=== PATIENT | female | born 1965 | race Caucasian/White ===

== ENCOUNTER 2017-09-24 09:07 | Emergency (ER) | payer OTHER, SELFPAY ==
[2017-09-24 09:27] VITALS: BP 165/88; PULSE 76; RESP 15; TEMP 37.1; O2SAT 99
--- NOTE | 2017-09-24 09:30 | ED.GENADULT ---
HPI - General Adult General Chief complaint: Hypertension Stated complaint: HIGH BLOOD PRESSURE Time Seen by Provider: 09/24/17 09:10 Source: patient Mode of arrival: ambulatory Limitations: no limitations History of Present Illness HPI narrative: 52-year-old female with history of hypertension and depression and anxiety presents to the emergency department with a chief complaint of elevated blood pressure comma chest pressure and feeling foggy. She states the symptoms started yesterday and she went to the urgent care. Upon arrival they found her blood pressure to be 200/100 and she was transported by ambulance to [facility] where she had a thorough evaluation in the emergency department and in the and was discharged after administration of Ativan. Today she started having similar symptoms again. Blood pressure at the clinic was 170s, patient called her primary care provider and was told to come here for evaluation. The patient used to be on lisinopril 10 mg hydrochlorothiazide 12.5 but that was discontinued I urine half ago as the patient no longer needed it. Patient denies blurry vision or focal neurologic findings such as numbness, tingling or weakness Onset (ago): day(s) Location: chest Quality: aching Pain Consistency: intermittent Relieving factors: none Associated symptoms: shortness of breath Related Data Home Medications Medication Instructions Recorded Confirmed naratriptan [Amerge] 1 tab PO PRN PRN MDD 5 mg 09/24/17 09/24/17 paroxetine HCl 30 mg PO DAILY 09/24/17 09/24/17 Previous Rx's Medication Instructions Recorded lisinopril-hydrochlorothiazide 1 tab PO DAILY #30 tab 09/24/17 Review of Systems Review of Systems All systems reviewed & are unremarkable except as noted in HPI and below Constitutional Reports body ache(s), Denies chills, Denies fever(s), Reports headache(s), Denies lethargy and Reports weakness Eyes Denies change in vision, Denies eye discharge, Denies irritation and Denies loss of vision ENT Ears, Nose, Mouth, and Throat: Denies change in voice, Reports headache(s), Denies neck pain and Denies sore throat Cardiovascular Reports chest pain, Denies irregular heart rhythm, Denies lightheadedness, Denies palpitations, Reports dyspnea, Denies dyspnea on exertion and Denies orthopnea Respiratory Denies cough, Reports dyspnea, Denies dyspnea on exertion and Denies wheezing Gastrointestinal Gastrointestinal: Denies abdominal pain, Denies change in bowel habits, Denies diarrhea, Denies nausea and Denies vomiting Genitourinary Denies hematuria, Denies flank pain, Denies urinary incontinence and Denies urinary urgency Musculoskeletal Denies neck pain Integumentary/Breasts Denies pruritus, Denies erythema, Denies rash and Denies wounds Neurologic Reports confusion, Reports headache(s), Denies loss of vision and Reports weakness Psychiatric Denies anxiety, Reports confusion, Denies depression, Denies homicidal ideation and Denies suicidal ideation Endocrine Denies palpitations Hematologic/Lymphatic Denies easy bruising Allergic/Immunologic Denies wheezing [facility] Medical History Anxiety (Acute) HTN (hypertension) (Acute) Exam Initial Vital Signs Initial Vital Signs: Vital Signs Temperature 98.8 F 09/24/17 09:27 Pulse Rate 76 09/24/17 09:27 Respiratory Rate 15 09/24/17 09:27 Blood Pressure 165/88 H 09/24/17 09:27 Pulse Oximetry 99 09/24/17 09:27 Const General: cooperative and well developed Nutritional Appearance: well nourished Orientation: alert, awake, oriented x3 and not confused [facility] Head: normocephalic and atraumatic Ears: external ears normal and TM's normal bilaterally Nose: external nose normal and No nasal discharge Face and sinus: sinuses nontender, face symmetric, no sinus tenderness and No dry mucous membranes Mouth: oral mucosae normal and moist mucous membranes Teeth and gingiva: dentition normal Throat: tonsils normal and uvula midline Eyes General: appearance normal, both eyes and all related structures Eyelids: eyelids normal Conjunctivae: conjunctivae normal Sclera: sclerae normal Pupils: PERRL EOM: EOM intact bilaterally Neck Neck: normal visual inspection, trachea midline, No lymphadenopathy, No midline deformity and No JVD Lymphatic: No lymphedema Chest Chest: normal inspection of the chest Resp Effort & Inspection: normal respiratory effort, able to speak in complete sentences, no respiratory distress and no use of accessory muscles Auscultation: clear to auscultation bilaterally, no rales, no rhonchi and no wheezes Cardio Rate: regular rate Rhythm: regular rhythm Heart Sounds: no click, no gallops, no murmurs and no rubs Pulses: normal peripheral pulses GI Inspection: non-distended Palpation: soft, no hepatosplenomegaly, No guarding, No pulsatile mass and No tender Auscultation: normal bowel sounds Back/Spine/Pelvis Back: No CVA tenderness Cervical Spine: cervical ROM normal and No pain with cervical ROM Thoracic/Lumbar Spine: thoracic and lumbar spine normal to inspection Skin General: no rashes or lesions noted, No jaundice and No petechiae Neuro General: alert, oriented x3, gait normal and no focal motor deficits Speech: speech normal Extrem General: full ROM, no clubbing, cyanosis or edema, no pedal edema and no calf tenderness Psych Appearance: well kempt Mental Status: mental status grossly normal Attitude: cooperative Thought Content: normal and suicidality Judgment: judgment good Course Orders Ordered: Discontinued Medications Ibuprofen (Advil) 400 mg PO NOW ONE Stop: 09/24/17 10:50 Last Admin: 09/24/17 10:51 Dose: 400 mg Vital Signs - 8 hr 09/24/17 09:27 Temperature 98.8 F Pulse Rate 76 Respiratory Rate 15 Blood Pressure 165/88 H Pulse Oximetry 99 Medical Decision Making Lab Data Result diagrams: 09/24/17 10:20 09/24/17 10:20 Lab Results 09/24/17 09/24/17 Range/Units 10:20 10:20 WBC 11.1 H (4.5-11.0) X10^3/uL RBC 4.50 (4.0-5.2) X10^6/uL Hgb 13.9 (12.0-16.0) g/dL Hct 41.1 (36-46) % MCV 91.5 (80-100) fL MCH 30.8 (26-34) PG MCHC 33.7 (30-36) % RDW 12.9 (11.6-14.8) % Plt Count 342 (150-400) X10^3/uL Neut % (Auto) 77.4 H (50-75) % Lymph % (Auto) 16.9 L (25-40) % [place] % (Auto) 4.5 (3-14) % Eos % (Auto) 0.5 L (2-4) % Baso % (Auto) 0.7 (0-2) % Neut # (Auto) 8600 H (8639-3510) /uL Sodium 142 (137-145) mmol/L Potassium 4.1 (3.4-5.1) mmol/L Chloride 102 (98-107) mmol/L Carbon Dioxide 29 (22-32) mmol/L BUN 19 H (7-17) mg/dL Creatinine 0.70 (0.52-1.04) mg/dL Estimated GFR > 60.0 (>60) mL/min BUN/Creatinine Ratio 27.1 H (6-22) Glucose 101 H (70-100) mg/dL Calcium 10.0 (8.4-10.2) mg/dL Troponin I < 0.012 (0.01-0.034) ng/mL ECG Data Attestation: I personally reviewed and interpreted this ECG as follows: Prior ECG tracings: not available for review Interpretation: Normal sinus rhythm without signs of ectopy or segmental elevations suggestive of ischemia Discharge Plan Departure Patient Disposition: Home, Self-Care Clinical Impression: Hypertension Discharge Date/Time: 09/24/17 11:27 Interventions: ED Discharge Assessment Last Done: 09/24/17 11:27 Instructions: DI for High Blood Pressure Activity Restrictions/Additional Instructions: *You have been diagnosed with [ hypertension ] *What to do: *Take medications as directed *Follow up with your primary care provider in 2-3 days, call for an appointment. Let them know you were seen in the Emergency Department and that we ask that you be seen in follow up *Return to ER if you should have any new, worsening or concerning symptoms, such as [ongoing chest pain, shortness of breath, blurred vision, stroke-like symptoms like numbness, tingling or weakness of year arm or leg ] Prescriptions: New lisinopril-hydrochlorothiazide 10-12.5 mg tablet 1 tab PO DAILY Qty: 30 RF: 0 No Action paroxetine HCl 30 mg Tablet 30 mg PO DAILY RF: 0 naratriptan [Amerge] 2.5 mg Tablet 1 tab PO PRN MDD 5 mg PRN (Reason: Migraine Headache) RF: 0 Referrals: Donna Rodríguez ARNP [Primary Care Provider] - Stand Alone Forms: Work/School Restrictions
[2017-09-24 09:45] VITALS: BP 152/85; PULSE 75; RESP 18; O2SAT 100
--- NOTE | 2017-09-24 09:59 | DI.RAD.S_ITS ---
PROCEDURE: XR CHEST 2V INDICATIONS: HTN, chest pressure. TECHNIQUE: 2 views of the chest were acquired. COMPARISON: None. FINDINGS: Surgical changes and devices: Radiopaque densities projecting over the right upper quadrant the abdomen likely represent surgical clips. Lungs and pleura: No pleural effusions or pneumothorax. Lungs are clear. Mediastinum: Mediastinal contours are normal. Heart size is normal. Bones and chest wall: No suspicious bony abnormalities. Soft tissues appear unremarkable. IMPRESSION: No acute cardiopulmonary disease. Dictated by: Eliazar Kelley M.D. on 09/24/2017 at 10:24 Approved by: Eliazar Kelley M.D. on 09/24/2017 at 10:30
--- NOTE | 2017-09-24 10:09 | ED_ITS ---
HPI - General Adult General Chief complaint: Hypertension Stated complaint: HIGH BLOOD PRESSURE Time Seen by Provider: 09/24/17 09:10 Source: patient Mode of arrival: ambulatory Limitations: no limitations History of Present Illness HPI narrative: 52-year-old female with history of hypertension and depression and anxiety presents to the emergency department with a chief complaint of elevated blood pressure comma chest pressure and feeling foggy. She states the symptoms started yesterday and she went to the urgent care. Upon arrival they found her blood pressure to be 200/100 and she was transported by ambulance to [facility] where she had a thorough evaluation in the emergency department and in the and was discharged after administration of Ativan. Today she started having similar symptoms again. Blood pressure at the clinic was 170s, patient called her primary care provider and was told to come here for evaluation. The patient used to be on lisinopril 10 mg hydrochlorothiazide 12.5 but that was discontinued I urine half ago as the patient no longer needed it. Patient denies blurry vision or focal neurologic findings such as numbness , tingling or weakness Onset (ago): day(s) Location: chest Quality: aching Pain Consistency: intermittent Relieving factors: none Associated symptoms: shortness of breath Related Data Home Medications Medication Instructions Recorded Confirmed naratriptan [Amerge] 1 tab PO PRN PRN MDD 5 mg 09/24/17 09/24/17 paroxetine HCl 30 mg PO DAILY 09/24/17 09/24/17 Previous Rx's Medication Instructions Recorded lisinopril-hydrochlorothiazide 1 tab PO DAILY #30 tab 09/24/17 Review of Systems Review of Systems All systems reviewed & are unremarkable except as noted in HPI and below Constitutional Reports body ache(s), Denies chills, Denies fever(s), Reports headache(s), Denies lethargy and Reports weakness Eyes Denies change in vision, Denies eye discharge, Denies irritation and Denies loss of vision ENT Ears, Nose, Mouth, and Throat: Denies change in voice, Reports headache(s), Denies neck pain and Denies sore throat Cardiovascular Reports chest pain, Denies irregular heart rhythm, Denies lightheadedness, Denies palpitations, Reports dyspnea, Denies dyspnea on exertion and Denies orthopnea Respiratory Denies cough, Reports dyspnea, Denies dyspnea on exertion and Denies wheezing Gastrointestinal Gastrointestinal: Denies abdominal pain, Denies change in bowel habits, Denies diarrhea, Denies nausea and Denies vomiting Genitourinary Denies hematuria, Denies flank pain, Denies urinary incontinence and Denies urinary urgency Musculoskeletal Denies neck pain Integumentary/Breasts Denies pruritus, Denies erythema, Denies rash and Denies wounds Neurologic Reports confusion, Reports headache(s), Denies loss of vision and Reports weakness Psychiatric Denies anxiety, Reports confusion, Denies depression, Denies homicidal ideation and Denies suicidal ideation Endocrine Denies palpitations Hematologic/Lymphatic Denies easy bruising Allergic/Immunologic Denies wheezing [facility] Medical History Anxiety (Acute) HTN (hypertension) (Acute) Exam Initial Vital Signs Initial Vital Signs: Vital Signs Temperature 98.8 F 09/24/17 09:27 Pulse Rate 76 09/24/17 09:27 Respiratory Rate 15 09/24/17 09:27 Blood Pressure 165/88 H 09/24/17 09:27 Pulse Oximetry 99 09/24/17 09:27 Const General: cooperative and well developed Nutritional Appearance: well nourished Orientation: alert, awake, oriented x3 and not confused [facility] Head: normocephalic and atraumatic Ears: external ears normal and TM's normal bilaterally Nose: external nose normal and No nasal discharge Face and sinus: sinuses nontender, face symmetric, no sinus tenderness and No dry mucous membranes Mouth: oral mucosae normal and moist mucous membranes Teeth and gingiva: dentition normal Throat: tonsils normal and uvula midline Eyes General: appearance normal, both eyes and all related structures Eyelids: eyelids normal Conjunctivae: conjunctivae normal Sclera: sclerae normal Pupils: PERRL EOM: EOM intact bilaterally Neck Neck: normal visual inspection, trachea midline, No lymphadenopathy, No midline deformity and No JVD Lymphatic: No lymphedema Chest Chest: normal inspection of the chest Resp Effort & Inspection: normal respiratory effort, able to speak in complete sentences, no respiratory distress and no use of accessory muscles Auscultation: clear to auscultation bilaterally, no rales, no rhonchi and no wheezes Cardio Rate: regular rate Rhythm: regular rhythm Heart Sounds: no click, no gallops, no murmurs and no rubs Pulses: normal peripheral pulses GI Inspection: non-distended Palpation: soft, no hepatosplenomegaly, No guarding, No pulsatile mass and No tender Auscultation: normal bowel sounds Back/Spine/Pelvis Back: No CVA tenderness Cervical Spine: cervical ROM normal and No pain with cervical ROM Thoracic/Lumbar Spine: thoracic and lumbar spine normal to inspection Skin General: no rashes or lesions noted, No jaundice and No petechiae Neuro General: alert, oriented x3, gait normal and no focal motor deficits Speech: speech normal Extrem General: full ROM, no clubbing, cyanosis or edema, no pedal edema and no calf tenderness Psych Appearance: well kempt Mental Status: mental status grossly normal Attitude: cooperative Thought Content: normal and suicidality Judgment: judgment good Course Orders Ordered: Discontinued Medications Ibuprofen (Advil) 400 mg PO NOW ONE Stop: 09/24/17 10:50 Last Admin: 09/24/17 10:51 Dose: 400 mg Vital Signs - 8 hr 09/24/17 09:27 Temperature 98.8 F Pulse Rate 76 Respiratory Rate 15 Blood Pressure 165/88 H Pulse Oximetry 99 Medical Decision Making Lab Data Result diagrams: 09/24/17 10:20 09/24/17 10:20 Lab Results 09/24/17 09/24/17 Range/Units 10:20 10:20 WBC 11.1 H (4.5-11.0) X10^3/uL RBC 4.50 (4.0-5.2) X10^6/uL Hgb 13.9 (12.0-16.0) g/dL Hct 41.1 (36-46) % MCV 91.5 (80-100) fL MCH 30.8 (26-34) PG MCHC 33.7 (30-36) % RDW 12.9 (11.6-14.8) % Plt Count 342 (150-400) X10^3/uL Neut % (Auto) 77.4 H (50-75) % Lymph % (Auto) 16.9 L (25-40) % [place] % (Auto) 4.5 (3-14) % Eos % (Auto) 0.5 L (2-4) % Baso % (Auto) 0.7 (0-2) % Neut # (Auto) 8600 H (6528-6545) /uL Sodium 142 (137-145) mmol/L Potassium 4.1 (3.4-5.1) mmol/L Chloride 102 (98-107) mmol/L Carbon Dioxide 29 (22-32) mmol/L BUN 19 H (7-17) mg/dL Creatinine 0.70 (0.52-1.04) mg/dL Estimated GFR > 60.0 (>60) mL/min BUN/Creatinine Ratio 27.1 H (6-22) Glucose 101 H (70-100) mg/dL Calcium 10.0 (8.4-10.2) mg/dL Troponin I < 0.012 (0.01-0.034) ng/mL ECG Data Attestation: I personally reviewed and interpreted this ECG as follows: Prior ECG tracings: not available for review Interpretation: Normal sinus rhythm without signs of ectopy or segmental elevations suggestive of ischemia Discharge Plan Departure Patient Disposition: Home, Self-Care Clinical Impression: Hypertension Discharge Date/Time: 09/24/17 11:27 Interventions: ED Discharge Assessment Last Done: 09/24/17 11:27 Instructions: DI for High Blood Pressure Activity Restrictions/Additional Instructions: *You have been diagnosed with [ hypertension ] *What to do: *Take medications as directed *Follow up with your primary care provider in 2-3 days, call for an appointment. Let them know you were seen in the Emergency Department and that we ask that you be seen in follow up *Return to ER if you should have any new, worsening or concerning symptoms , such as [ongoing chest pain, shortness of breath, blurred vision, stroke-like symptoms like numbness, tingling or weakness of year arm or leg ] Prescriptions: New lisinopril-hydrochlorothiazide 10-12.5 mg tablet 1 tab PO DAILY Qty: 30 RF: 0 No Action paroxetine HCl 30 mg Tablet 30 mg PO DAILY RF: 0 naratriptan [Amerge] 2.5 mg Tablet 1 tab PO PRN MDD 5 mg PRN (Reason: Migraine Headache) RF: 0 Referrals: Donna Rodríguez ARNP [Primary Care Provider] - Stand Alone Forms: Work/School Restrictions
--- NOTE | 2017-09-24 10:12 | PC.NURSE ---
No c/o of chest pain;
[2017-09-24 10:29] LABS: Add Manual Diff / Slide Review NO; Basophils Percent Auto 0.7 % (0-2); Eosinophils Percent Auto 0.5 % (2-4); Hematocrit 41.1 % (36-46); Hemoglobin 13.9 g/dL (12.0-16.0); Lymphocytes Percent Auto 16.9 % (25-40); Mean Corpuscular HGB Conc 33.7 % (30-36); Mean Corpuscular Hemoglobin 30.8 PG (26-34); Mean Corpuscular Volume 91.5 fL (80-100); Monocytes Percent Auto 4.5 % (3-14); Neutrophils Absolute Auto 8600 /uL (3000-5900); Neutrophils Percent Auto 77.4 % (50-75); Platelet Count 342 X10^3/uL (150-400); Red Cell Distribution Width 12.9 % (11.6-14.8); White Blood Cell Count 11.1 X10^3/uL (4.5-11.0)
[2017-09-24 10:40] LABS: BUN Creatinine Ratio 27.1 (6-22); Blood Urea Nitrogen 19 mg/dL (7-17); Carbon Dioxide 29 mmol/L (22-32); Chloride 102 mmol/L (98-107); Estimated Glomerular Filt Rate > 60.0 mL/min (>60); Glucose 101 mg/dL (70-100); HEMOLYSIS < 15 (0-50); Potassium 4.1 mmol/L (3.4-5.1); Sodium 142 mmol/L (137-145)
[2017-09-24] MEDS: IBUPROFEN 400 MG TABLET PO (10:51)
[2017-09-24 10:54] LABS: Troponin I < 0.012 ng/mL (0.01-0.034)
[2017-09-24 10:56] VITALS: BP 162/87; PULSE 69; RESP 13; O2SAT 99
[2017-09-24 11:10] VITALS: BP 156/72; PULSE 76; RESP 15; O2SAT 98
[2017-09-24 11:27] VITALS: BP 152/64; PULSE 72; RESP 18; TEMP 36.9; O2SAT 100
== END 2017-09-24 11:27 | disposition home or self-care (01) ==
PROVIDERS: Emergency Provider Emergency Medicine; PCP Nurse Practitioner
DX: I10 Essential (primary) hypertension (principal); R07.9 Chest pain, unspecified
CPT/HCPCS: 36415; 71046; 80048; 84484; 85025; 93005; 99283; 99285